=== PATIENT | female | born 1975 | race Caucasian/White ===

== ENCOUNTER → 2017-02-06 | Outpatient (CLI) | payer OTHER ==
--- NOTE | 2017-02-07 09:48 | REPMRS ---
Patient History The patient states she has not had a clinical breast exam in over a year. Patient is postmenopausal. Family history of prostate cancer in paternal grandfather at age 70 and unknown cancer in maternal grandmother at age 64. Digital Mammo Screening Bilat: February 06, 2017 - Exam #: [id number] Bilateral CC and MLO view(s) were taken. Technologist: Megan Ramírez, Technologist Prior study comparison: December 11, 2015, [facility] FINDINGS: There are scattered fibroglandular densities. There has been no change in the appearance of the mammogram from the prior studies. There is a mild amount of residual fibroglandular tissue which is fairly symmetric. There is no interval development of dominant mass, architectural distortion, or clustered microcalcification suggestive of malignancy. ASSESSMENT: BI-RADS/ACR category 1 mammogram. Negative. Recommendation Routine screening mammogram in 1 year (for women over age 40). This mammogram was interpreted with the aid of an FDA-approved computer-aided dectection system. Electronically Signed By: Bridger Love MD 02/07/17 0905
== END ==
LOC: M RAD 16:34
PROVIDERS: ATTEND Physician Assistant Medical
DX: Z12.31 Encounter for screening mammogram for malignant neoplasm of breast (principal); Z78.0 Asymptomatic menopausal state

== ENCOUNTER → 2018-02-20 | Outpatient (CLI) | payer OTHER | LOC: M RAD 15:47 | DX: Z12.31 Encounter for screening mammogram for malignant neoplasm of breast (principal) | CPT/HCPCS: 77067 ==

== ENCOUNTER → 2018-04-11 | Outpatient (CLI) | payer OTHER | LOC: M WUC 19:13 | DX: S90.31XA Contusion of right foot, initial encounter (principal); M77.31 Calcaneal spur, right foot | CPT/HCPCS: 73630 ==

== ENCOUNTER → 2019-05-20 | Outpatient (CLI) | payer OTHER ==
--- NOTE | 2019-05-20 17:18 | REPMRS ---
Patient History The patient states she has not had a clinical breast exam in over a year. Family history of unknown cancer at age 64 in maternal grandmother, prostate cancer at age 70 in paternal grandfather. The Glenn Cordero lifetime risk for breast cancer is 5.2 %. Digital Mammo Screening Bilat: May 20, 2019 - Exam #: [id number] Bilateral CC and MLO view(s) were taken. Technologist: Megan Ramírez, Technologist Prior study comparison: February 20, 2018, bilateral digital mammo screening bilat performed at [facility]. February 06, 2017, bilateral digital mammo screening bilat performed at [facility]. FINDINGS: There are scattered fibroglandular densities. There has been no change in the appearance of the mammogram from the prior studies. There is a mild amount of residual fibroglandular tissue which is fairly symmetric. There is no interval development of dominant mass, architectural distortion, or clustered microcalcification suggestive of malignancy. Assessment: BI-RADS/ACR category 1 mammogram. Negative Mammogram. Recommendation Routine screening mammogram in 1 year (for women over age 40). This mammogram was interpreted with the aid of an FDA-approved computer-aided dectection system. Electronically Signed By: Bridger Love MD 05/20/19 1554
== END ==
LOC: M RAD 16:19
PROVIDERS: ATTEND Family Medicine
DX: Z12.31 Encounter for screening mammogram for malignant neoplasm of breast (principal)

== ENCOUNTER → 2020-07-15 | Outpatient (CLI) | payer OTHER ==
--- NOTE | 2020-07-15 10:29 | REPMRS ---
Patient History The patient states she has not had a clinical breast exam in over a year. Family history of unknown cancer at age 64 in maternal grandmother, prostate cancer at age 70 in paternal grandfather. 3D TOMOSYNTHESIS WAS PERFORMED. The Glenn Cordero lifetime risk for breast cancer is 5.1%. Volpara breast density a. Digital Woman Screen Mammo: July 15, 2020 - Exam #: [id number] Bilateral CC and MLO view(s) were taken. Technologist: Vanessa Rodríguez, Technologist Prior study comparison: May 20, 2019, bilateral digital mammo screening bilat, performed at [facility]. February 20, 2018, bilateral digital mammo screening bilat, performed at [facility]. FINDINGS: There are scattered fibroglandular densities. There has been no change in the appearance of the mammogram from the prior studies. There is a mild amount of residual fibroglandular tissue which is fairly symmetric. There is no interval development of dominant mass, architectural distortion, or clustered microcalcification suggestive of malignancy. Assessment: BI-RADS/ACR category 1 mammogram. Negative Mammogram. Recommendation Routine screening mammogram in 1 year (for women over age 40). This mammogram was interpreted with the aid of an FDA-approved computer-aided dectection system. Electronically Signed By: Bridger Love MD 07/15/20 [id number]
== END ==
LOC: M WHC 09:37
PROVIDERS: ATTEND Family Medicine
DX: Z12.31 Encounter for screening mammogram for malignant neoplasm of breast (principal)

== ENCOUNTER 2021-04-05 04:48 | Emergency (ER) | payer OTHER ==
[~2021-04-05] VITALS: Ht 157.5 cm; Wt 108.6 kg
[2021-04-05] MEDS ORDERED: NOVOINJ3 SQ (05:04)
[2021-04-05] MEDS ORDERED: D31000TA2 PO (05:04)
[2021-04-05] MEDS ORDERED: LANTINJ4 SQ (05:04)
[2021-04-05] MEDS ORDERED: TRUL0.5I SQ (05:04)
[2021-04-05] MEDS ORDERED: METF500T13 PO (05:04)
[2021-04-05] MEDS ORDERED: SYNT100T PO (05:04)
[2021-04-05] MEDS ORDERED: SIMV10TA21 PO (05:04)
[2021-04-05] MEDS ORDERED: VITA500T9 PO (05:04)
[2021-04-05] MEDS ORDERED: KETOROLAC 30 MG/ML 1ML VIAL IM ONE (07:40)
[2021-04-05 08:45] LABS: RSV AMPLIFICATION NEGATIVE (NEGATIVE)
--- NOTE | 2021-04-05 09:34 | REPVR ---
PROCEDURE INFORMATION: Exam: CT Maxillofacial Without Contrast, Sinus Exam date and time: 04/05/2021 7:39 AM Age: 45 years old Clinical indication: Face pain, ? sinusitis TECHNIQUE: Imaging protocol: CT Maxillofacial without contrast. Focus on the sinuses. Radiation optimization: All CT scans at this facility use at least one of these dose optimization techniques: automated exposure control; mA and/or kV adjustment per patient size (includes targeted exams where dose is matched to clinical indication); or iterative reconstruction. COMPARISON: No relevant prior studies available. FINDINGS: Frontal sinuses: Normal. No air-fluid levels. Ethmoid air cells: Normal. No air-fluid levels. Sphenoid sinuses: Normal. No air-fluid levels. Maxillary sinuses: There is moderate left maxillary sinus mucoperiosteal thickening. Nasal cavity/Septum: There is nasal septal deviation toward the right. Orbital cavity: Orbits are normal. Globes are unremarkable. Bones/joints: Unremarkable. Soft tissues: Unremarkable. IMPRESSION: There is moderate left maxillary sinus mucoperiosteal thickening. Electronically signed by: Bret Herman On 04/05/2021 09:33:42 AM
[2021-04-05] MEDS ORDERED: ONDANSETRON 4 MG ORAL DISINTEGRATING TAB PO ONE (09:55)
[2021-04-05] MEDS ORDERED: IBUP80TA PO (09:58)
[2021-04-05 10:02] VITALS: BP 147/91
== END 2021-04-05 10:07 | disposition home or self-care (01) ==
LOC: M ED 04:48
DX: R93.0 Abnormal findings on diagnostic imaging of skull and head, not elsewhere classified (principal); R51.9 Headache, unspecified; R11.10 Vomiting, unspecified; Z79.2 Long term (current) use of antibiotics; Z88.0 Allergy status to penicillin; Z88.1 Allergy status to other antibiotic agents
CPT/HCPCS: 70486; 87631; 96372; 99283; J1885; Q0162

== ENCOUNTER → 2021-10-19 | Outpatient (CLI) | payer OTHER ==
[~2021-10-19] MED LIST: D31000TA2 PO; IBUP80TA PO; LANTINJ4 SQ; METF500T13 PO; NOVOINJ3 SQ; SIMV10TA21 PO; SYNT100T PO; TRUL0.5I SQ; VITA500T9 PO
== END ==
LOC: M PLAIMG 08:11
PROVIDERS: ATTEND Family Medicine
DX: M54.30 Sciatica, unspecified side (principal); M51.26 Other intervertebral disc displacement, lumbar region; M51.27 Other intervertebral disc displacement, lumbosacral region

== ENCOUNTER → 2022-09-23 | Outpatient (CLI) | payer OTHER ==
[~2022-09-23] MED LIST changes: -D31000TA2 PO; +VITA100093 PO
== END ==
LOC: M WHC 09:02
PROVIDERS: ATTEND Family Medicine
DX: Z12.31 Encounter for screening mammogram for malignant neoplasm of breast (principal)

== ENCOUNTER → 2024-02-09 | Outpatient (CLI) | payer OTHER | LOC: M WHC 16:53 | PROVIDERS: ATTEND Student in an Organized Health Care Education/Training Program | DX: Z12.31 Encounter for screening mammogram for malignant neoplasm of breast (principal) ==

== ENCOUNTER → 2025-07-28 | Outpatient (CLI) | payer OTHER | LOC: M WHC 16:24 | PROVIDERS: ATTEND Student in an Organized Health Care Education/Training Program | DX: Z12.31 Encounter for screening mammogram for malignant neoplasm of breast (principal); R92.313 Mammographic fatty tissue density, bilateral breasts ==